=== PATIENT | male | born 1975 | race Caucasian/White ===

== ENCOUNTER 2019-05-29 06:36 | Emergency (ER) | payer OTHER ==
[~2019-05-29] VITALS: Ht 180.3 cm; Wt 102.1 kg
[2019-05-29] MEDS ORDERED: HYDROCODONE/APAP 10-325 MG TABLET ONE (07:05)
[2019-05-29] MEDS ORDERED: HYDROCODONE/APAP 10-325 MG TABLET PO ONE (07:15)
--- NOTE | 2019-05-29 07:42 | NUR ---
Crutches dispensed. Pt instructed on proper use of crutches. Patient able to demonstrate correct use of crutches.
[2019-05-29 07:43] VITALS: BP 156/80
--- NOTE | 2019-05-29 07:47 | NUR ---
Patient discharged to home in stable conditon. Written and verbal after care instructions given. Patient verbalizes understanding of instructions.
== END 2019-05-29 07:51 | disposition home or self-care (01) ==
LOC: ER 06:42
DX: S93.602A Unspecified sprain of left foot, initial encounter (principal); X50.1XXA Overexertion from prolonged static or awkward postures, initial encounter; Y93.E5 Activity, floor mopping and cleaning; Y92.89 Other specified places as the place of occurrence of the external cause; Y99.8 Other external cause status
CPT/HCPCS: 73630; A4663